=== PATIENT | male | born 1975 | race Caucasian/White ===

== ENCOUNTER 2024-03-31 06:19 | Day surgery (SDC) | payer OTHER ==
[~2024-03-31] VITALS: Ht 175.3 cm; Wt 93.4 kg
[~2024-03-31 06:19] MED LIST: FISH OIL 1,0001 EAC5 PO; FLOMAX0.4 MG PO; GALZIN50 MG PO; GLUCOSAMINE CH1 EAC2 PO; MAGNESIUM500 MG PO; MIDAZOLAM HCL 5 MG/5 ML VIAL IV PRN; MULTIVITAMIN1 EACH PO; NAPROSYN375 MG PO; SELENIUM200 MC2 PO; VITAMIN D3125 MC1 PO; fentaNYL citrate 100 MCG/2 ML VIAL IV PRN
[2024-03-31 06:47] VITALS: BP 125/78
[2024-03-31] MEDS ORDERED: IBLOOD GLUCOSE TEST STRIP 1 EA TEST VI PRN ×2 (07:00)
[2024-03-31] MEDS ORDERED: ondansetron HCL 4 MG/2 ML VIAL IV PRN (07:00)
[2024-03-31] MEDS ORDERED: LIDOCAINE HCL 1% 5 ML SDV INJ ONE (07:00)
[2024-03-31] MEDS ORDERED: LACTATED RINGER'S 1,000 ML IV SCH (07:00)
[2024-03-31] MEDS ORDERED: NALOXONE HCL 0.4 MG SYR IV PRN (07:00)
[2024-03-31] MEDS ORDERED: LIDOCAINE HCL 2% 5 ML SDV ONE (07:04)
[2024-03-31] MEDS ORDERED: propofoL 200 MG/20 ML VIAL ONE (07:04)
[2024-03-31 07:07] LABS: BASOPHILS 0.6 % (0-2); BASOPHILS, ABSOLUTE 0 %; EOSINOPHILS 4.5 % (0-6); EOSINOPHILS, ABSOLUTE 0.2; HEMATOCRIT 43.8 % (35.0-50.0); LYMPHOCYTES 30.1 % (24-44); LYMPHOCYTES, ABSOLUTE 1.2; MCH 32.6 (27-36); MCHC 34.3 g/dl (30-36); MCV 95.1 fl (81-99); MONOCYTES, ABSOLUTE 0.3; NEUTROPHILS 55.8 % (39-80); NEUTROPHILS, ABSOLUTE 2.2; PLATELET COUNT 203 K/uL (140-440); RBC 4.61 M/ul (4.3-5.7); RDW 13.7 (10.5-15.0)
[2024-03-31 07:22] LABS: ALBUMIN 3.9 g/dL (3.4-5.0); ALBUMIN/GLOBULIN RATIO 1.15 (1.1-2.4); ANION GAP 13.9 (7-21); BILIRUBIN, TOTAL 1.2 ng/dL (0.2-1.0); BUN/CREATININE RATIO 18.18 (6.0-28.6); CREATININE, SERUM 1.32 mg/dL (0.70-1.30); POTASSIUM 3.9 mmol/L (3.5-5.1); PROTEIN, TOTAL 7.3 g/dL (6.4-8.2)
--- NOTE | 2024-03-31 07:55 | NUR ---
03/31/24 [id number] Mei Viera 0750-PATIENT ARRIVED TO PACU ON 2L NC RR EVEN. PATIENT NONAROUSABLE LAYING LEFT LATERAL ABDOMEN SOFT. IVF INFUSING. 0753-PATIENT AROUSING OPENING EYES ORIENTED TO PACU. DOZES BACK TO SLEEP. 2L NC 99% RR EVEN. SINUS DICKSON HR 52
[2024-03-31 08:19] VITALS: BP 122/88
--- NOTE | 2024-03-31 15:55 | OR ---
[facility] [address], [place] [address] Signed DATE OF OPERATION: 03/31/2024 SURGEON: Guerline Reyes MD PREOPERATIVE DIAGNOSIS: Mother with colonic polyps in her 60s. POSTOPERATIVE DIAGNOSIS: Minimal to moderate left-sided diverticulosis. PROCEDURE: Colonoscopy without biopsy. ESTIMATED BLOOD LOSS: None. INDICATIONS: Peng is a 48-year-old gentleman, asked to see me for his initial colonoscopy. His mom had her 1st colonic polyps removed in her 60s. She now goes every five years. Peng has no lower GI complaints. He has never had a previous colonoscopy. In the office, I gave him a pamphlet on colonoscopy. We looked at the nature of the test. There is risk including, but not limited to gas bloating, crampy abdominal pain, bleeding, perforation requiring surgery, and missed diagnosis. We also reviewed the written instructions for the bowel prep line by line. We also discussed the need for sedation. He told me he is extremely difficult to put to sleep and we recommended we have an anesthesia provider available in that regard. In reviewing his chart, we could also see he does like a little beer each evening after work. He understands an adult person has to take him home afterwards. He had expressed understanding and wished to proceed. PROCEDURE IN DETAIL: Peng was taken into our endoscopy suite and placed in the left lateral decubitus position. He was given monitored anesthesia care with propofol infusion per our nurse industrial accountant. A digital rectal exam was performed and this was unremarkable. He had no external hemorrhoids. He had good sphincter tone. There were no masses. The adult colonoscope was introduced and advanced under direct visualization of the camera. His prep was quite excellent. We could easily see the appendiceal orifice and the ileocecal valve. The scope was then slowly withdrawn. He does have some diverticula in his left and sigmoid colon. They were minimal to moderate in size, few in number and scattered about. Once in the rectum, the scope was retroflexed and there was no additional pathology noted above the anal canal. After this, the gas was suctioned out and the Electronically Signed By: GUERLINE REYES MD 03/31/24 1555 PATIENT NAME: PENG WALLACE OPERATIVE REPORT DATE OF : 73 REPORT #: [id number] PHYSICIAN: GUERLINE REYES MD PCP: BRITTANY FRIEDMAN REPORT IS CONFIDENTIAL AND NOT TO BE RELEASED WITHOUT AUTHORIZATION [facility] [address] [place] [id number] Signed colonoscope removed. Peng tolerated his procedure quite well. RECOMMENDATIONS: Peng can return in 5 years for repeat screening colonoscopy due to his mother's history of colonic polyps. MD KRIS Rodriguez/MARYL /[id number] cc: MD Guerline Adamson MD Copies: DEEPAK ZELAYA MD, ANDREW L MD ~ Electronically Signed By: GUERLINE REYES MD 03/31/24 1555 PATIENT NAME: PENG WALLACE OPERATIVE REPORT DATE OF : 73 REPORT #: [id number] PHYSICIAN: GUERLINE REYES MD PCP: BRITTANY FRIEDMAN REPORT IS CONFIDENTIAL AND NOT TO BE RELEASED WITHOUT AUTHORIZATION
== END 2024-03-31 08:25 | disposition home or self-care (01) ==
LOC: DS 06:19
PROVIDERS: ATTEND Colon & Rectal Surgery
PROC: 0DJD8ZZ Inspection of Lower Intestinal Tract, Via Natural or Artificial Opening Endoscopic (ICD-10-PCS; principal; 2024-03-31 07:30)
DX: K57.30 Diverticulosis of large intestine without perforation or abscess without bleeding (principal); E78.5 Hyperlipidemia, unspecified; M54.30 Sciatica, unspecified side; N40.0 Benign prostatic hyperplasia without lower urinary tract symptoms; Z79.899 Other long term (current) drug therapy; Z83.710 Family history of adenomatous and serrated polyps
CPT/HCPCS: 00811; 36415; 80053; 85025; J2001; J2704